=== PATIENT | male | born 1965 ===

== ENCOUNTER 2016-12-10 08:40 | Day surgery (SDC) | payer OTHER, SELFPAY ==
[2016-07-11 13:30] VITALS: BMI 25.7
[2016-12-10] MEDS ORDERED: Lactated Ringer's 500 ML IV ONE (09:41)
[2016-12-10] MEDS ORDERED: Propofol 10 mg/ml Inj (20 ML) ONE (11:06)
[2016-12-10 11:42] VITALS: TEMP 97
[2016-12-10 11:51] VITALS: BP 100/70; PULSE 79; RESP 16; O2SAT 84
== END 2016-12-10 12:09 | disposition home or self-care (01) ==
LOC: H.ENDO 08:40
PROVIDERS: ATTEND Internal Medicine Gastroenterology
DX: Z12.11 Encounter for screening for malignant neoplasm of colon (principal); E78.5 Hyperlipidemia, unspecified; I10 Essential (primary) hypertension; K64.8 Other hemorrhoids

== ENCOUNTER 2017-03-18 09:49 | Day surgery (SDC) | payer OTHER, SELFPAY ==
[2017-03-18 10:57] VITALS: BMI 27.4
[2017-03-18] MEDS ORDERED: Lactated Ringer's 500 ML IV ONE (10:59)
[2017-03-18 11:06] VITALS: TEMP 96.9
[2017-03-18] MEDS ORDERED: Propofol 10 mg/ml Inj (20 ML) ONE (11:21)
[2017-03-18 11:57] VITALS: BP 136/83; PULSE 52; RESP 20; O2SAT 99
== END 2017-03-18 12:49 | disposition home or self-care (01) ==
LOC: H.ENDO 09:49
PROVIDERS: ATTEND Internal Medicine Gastroenterology
DX: K29.50 Unspecified chronic gastritis without bleeding (principal); K44.9 Diaphragmatic hernia without obstruction or gangrene; K30 Functional dyspepsia; I10 Essential (primary) hypertension; E78.5 Hyperlipidemia, unspecified